=== PATIENT | male | born 1930 | race African-American/Black ===

== ENCOUNTER 2016-12-24 07:36 | Emergency (ER) | payer MEDICARE, OTHER ==
[~2016-12-24] VITALS: Ht 167.6 cm; Wt 104.3 kg
[2016-12-24] MEDS ORDERED: SODIUM CHLORIDE 0.9% 1,000 ML IV ONE (08:44)
[2016-12-24 09:35] LABS: Urine Bilirubin Negative (Negative); Urine Blood 2+ /uL (Negative); Urine Color Yellow (Yellow); Urine Glucose Normal (Normal); Urine Ketone Negative (Negative); Urine Nitrite POSITIVE (Negative); Urine RBC 299 /hpf (0 - 3); Urine Squamous Epithelial Cell FEW /hpf (<5); Urine Urobilinogen Normal (Negative); Urine WBC Clumps PRESENT /hpf (None Seen)
[2016-12-24 10:39] LABS: Basophils # (auto) 0 uL; Basophils % (auto) 0.3 % (0.0-2.0); CONDITION Y; Eosinophils # (auto) 0.1 uL; Eosinophils % (auto) 1.3 % (0.0-7.0); Hematocrit 40.4 % (41.0-53.0); Hemoglobin 13.8 g/dL (13.5-17.5); Lymphocytes # (auto) 0.9 uL; Lymphocytes % (auto) 10.2 % (10.0-50.0); Mean Corpuscular Hemoglobin 29.8 pg (28.0-32.0); Mean Corpuscular Hgb Conc. 34.2 g/dL (32.0-36.0); Mean Corpuscular Volume 86.9 fL (80.0-100.0); Mean Platelet Volume 8.8 fL (7.4-10.4); Monocytes # (auto) 0.5 uL; Neutrophils # (auto) 7.4 uL; Neutrophils % (auto) 82.2 % (37.0-80.0); Platelet Count (auto) 232 10^3/uL (140-450); Red Cell Distribution Width 12.8 % (11.6-16.0)
[2016-12-24 10:52] LABS: INR 1.01 (0.9-1.15); Partial Thromboplastin Time 29.6 sec (22.64-33.71)
[2016-12-24] MEDS ORDERED: NICARDIPINE 25MG/250ML BAG KIT 250 ML IV SCH (10:54)
[2016-12-24 10:59] VITALS: BP 194/97
[2016-12-24] MEDS ORDERED: LABETALOL HCL 5 MG/ML 4ML SYRINGE IV ONE (11:00)
[2016-12-24] MEDS ORDERED: cloNIDine HCL 0.1 MG TAB ONE (11:00)
[2016-12-24 11:02] LABS: Albumin 3.3 g/dL (3.4-5.0); Bilirubin, Total 0.7 mg/dL (0.2-1.0); Calcium 9.1 mg/dL (8.5-10.1); Potassium 3.6 mmol/L (3.5-5.1)
[2016-12-24] MEDS ORDERED: cloNIDine HCL 0.1 MG TAB PO ONE (11:15)
[2016-12-24] MEDS ORDERED: LABETALOL HCL 5 MG/ML ML 20ML VIAL IV ONE (11:15)
[2016-12-24 11:17] LABS: B-Type Natriuretic Peptide 136.56 pg/mL (0-100)
[2016-12-24 11:20] LABS: Temperature: 24.3 C (20.0-25.0)
== END 2016-12-24 11:16 | disposition short-term general hospital (02) ==
LOC: ER 07:36 → EDBD 07:36 → ER 11:16
DX: S06.5X9A Traumatic subdural hemorrhage with loss of consciousness of unspecified duration, initial encounter (principal); I11.0 Hypertensive heart disease with heart failure; I50.9 Heart failure, unspecified; E11.9 Type 2 diabetes mellitus without complications; K21.9 Gastro-esophageal reflux disease without esophagitis; E78.5 Hyperlipidemia, unspecified; I25.2 Old myocardial infarction; R41.82 Altered mental status, unspecified; F03.90 Unspecified dementia, unspecified severity, without behavioral disturbance, psychotic disturbance, mood disturbance, and anxiety; G30.9 Alzheimer's disease, unspecified; F02.80 Dementia in other diseases classified elsewhere, unspecified severity, without behavioral disturbance, psychotic disturbance, mood disturbance, and anxiety; W18.39XA Other fall on same level, initial encounter; Y93.89 Activity, other specified; Y92.89 Other specified places as the place of occurrence of the external cause; Y99.8 Other external cause status
CPT/HCPCS: 36415; 70450; 71010; 73502; 80053; 81001; 83880; 84484; 85025; 85610; 85730; 93005; 96361; 96374; 99285; J3490; J7030

== ENCOUNTER 2017-05-20 12:15 | Inpatient (IN) | payer MEDICARE, OTHER ==
[~2017-05-20] VITALS: Ht 172.7 cm; Wt 75.5 kg
[2017-05-20] MEDS ORDERED: SODIUM CHLORIDE 0.9% 1,000 ML IV ONE (12:18)
[2017-05-20 14:07] LABS: Basophils # (auto) 0 uL; Basophils % (auto) 0.5 % (0.0-2.0); Eosinophils # (auto) 0.4 uL; Eosinophils % (auto) 5.5 % (0.0-7.0); Hematocrit 37.7 % (41.0-53.0); Hemoglobin 12.7 g/dL (13.5-17.5); Lymphocytes % (auto) 14.5 % (10.0-50.0); Mean Corpuscular Hemoglobin 29.4 pg (28.0-32.0); Mean Corpuscular Hgb Conc. 33.7 g/dL (32.0-36.0); Mean Corpuscular Volume 87.3 fL (80.0-100.0); Monocytes # (auto) 0.9 uL; Monocytes % (auto) 12.2 % (0.0-12.0); Neutrophils # (auto) 4.8 uL; Neutrophils % (auto) 67.3 % (37.0-80.0); Nucleated Red Blood Cells % 0.1 %; Platelet Count (auto) 177 10^3/uL (140-450); Red Blood Cells 4.32 10^6/uL (4.5-5.90); Red Cell Distribution Width 13.7 % (11.8-14.3); White Blood Cell 7.1 10^3/uL (4.4-10.8)
[2017-05-20 14:18] LABS: Alanine Aminotransferase 74 U/L (16-61); Albumin 3.2 g/dL (3.4-5.0); Alkaline Phosphatase 93 U/L (45-117); Anion Gap 10 (5-15); Aspartate Aminotransferase 21 U/L (15-37); BUN/Creatinine Ratio 44.2; Bilirubin, Total 0.3 mg/dL (0.2-1.0); Blood Alcohol < 3.0 mg/dL (0-5); Blood Urea Nitrogen 42 mg/dL (7-18); Calcium 8.5 mg/dL (8.5-10.1); Carbon Dioxide 26 mmol/L (21-32); Chloride 107 mmol/L (98-107); GFR African American 97 mL/min; GFR Non-African American 80 mL/min; Glucose 134 mg/dL (74-106); Magnesium 2.7 mg/dL (1.6-2.6); Sodium 143 mmol/L (136-145); Total Protein 6.6 g/dL (6.4-8.2)
[2017-05-20] MEDS ORDERED: DEXTROSE (50%) 50ML SYRG IV PRN (15:30)
[2017-05-20] MEDS ORDERED: AZITHROMYCIN 500MG/ 250ML 250 ML IV ONE (15:30)
[2017-05-20] MEDS ORDERED: cefTRIAXone 1GM/10ml IVPUSH 10 ML IV ONE (15:30)
[2017-05-20 15:41] LABS: Urine Bacteria FEW /hpf (None Seen); Urine Blood 2+ /uL (Negative); Urine Specific Gravity 1.017 (1.001-1.035); Urine WBC 7 /hpf (0 - 3)
[2017-05-20] MEDS ORDERED: LORazepam 2MG/ML-1ML VIAL IV ONE (17:15)
[2017-05-20] MEDS: ASPirin 81 mg TAB PO SCH (17:28)
[2017-05-20] MEDS: InsuLIN REG 1unit/0.01ml Soln (100units/ml) SC SCH (17:53)
[2017-05-20] MEDS: ACCU-CHEK COMFORT CURVE STRIP VI SCH (17:53)
[2017-05-20 20:39] LABS: INR 0.98 (0.9-1.15); Partial Thromboplastin Time 27.9 sec (22.64-33.71); Prothrombin Time 10.7 sec (9.37-12.3)
[2017-05-20] MEDS ORDERED: LORazepam 2MG/ML-1ML VIAL ONE (21:30)
[2017-05-20] MEDS ORDERED: diphenhdrAMINE HCL 50 MG/1 ML VL IV ONE (21:30)
[2017-05-20] MEDS: LORazepam 2MG/ML-1ML VIAL IV PRN (21:44)
[2017-05-20] MEDS: ATORVASTATIN 20 MG TAB PO SCH (22:37)
[2017-05-21] VITALS: BP 145/76
[2017-05-21] MEDS: ACCU-CHEK COMFORT CURVE STRIP VI SCH ×4 (00:18→18:13)
[2017-05-21 05:00] VITALS: BP 155/82
[2017-05-21] MEDS: InsuLIN REG 1unit/0.01ml Soln (100units/ml) SC SCH ×4 (05:34→18:00)
[2017-05-21 07:25] LABS: Basophils # (auto) 0.1 uL; Basophils % (auto) 0.7 % (0.0-2.0); Eosinophils # (auto) 0.5 uL; Hematocrit 36.9 % (41.0-53.0); Hemoglobin 12.3 g/dL (13.5-17.5); Lymphocytes # (auto) 1.3 uL; Lymphocytes % (auto) 17.8 % (10.0-50.0); Mean Corpuscular Hemoglobin 29.8 pg (28.0-32.0); Mean Corpuscular Hgb Conc. 33.4 g/dL (32.0-36.0); Mean Corpuscular Volume 89.4 fL (80.0-100.0); Monocytes # (auto) 0.8 uL; Monocytes % (auto) 10.1 % (0.0-12.0); Neutrophils # (auto) 4.9 uL; Neutrophils % (auto) 65.4 % (37.0-80.0); Platelet Count (auto) 166 10^3/uL (140-450); Red Blood Cells 4.12 10^6/uL (4.5-5.90); White Blood Cell 7.6 10^3/uL (4.4-10.8)
[2017-05-21 07:33] LABS: BUN/Creatinine Ratio 43.4; Calcium 8.5 mg/dL (8.5-10.1); Potassium 4.1 mmol/L (3.5-5.1)
[2017-05-21 09:00] VITALS: BP 141/74
[2017-05-21] MEDS: cefTRIAXone 1GM/10ml IVPUSH 10 ML IV SCH (09:19)
[2017-05-21] MEDS ORDERED: AZITHROMYCIN 500MG/ 250ML 250 ML IV SCH (10:00)
[2017-05-21] MEDS: ASPirin 81 mg TAB PO SCH (12:46)
[2017-05-21 13:00] VITALS: BP 136/64
[2017-05-21] MEDS: LORazepam 2MG/ML-1ML VIAL IV PRN (14:49)
[2017-05-21 16:36] VITALS: BP 117/60
[2017-05-21] MEDS ORDERED: NIFE10CA3 (17:59)
[2017-05-21] MEDS ORDERED: ATOR1TAB (17:59)
[2017-05-21] MEDS ORDERED: RISP1TAB63 (17:59)
[2017-05-21] MEDS ORDERED: LABE100T (17:59)
[2017-05-21] MEDS ORDERED: CLON0.3D4 (17:59)
[2017-05-21] MEDS ORDERED: DONE10TA40 (17:59)
[2017-05-21] MEDS ORDERED: GABA300C10 (17:59)
[2017-05-21] MEDS ORDERED: FURO40TA4 (17:59)
[2017-05-21] MEDS ORDERED: LISI-646 (17:59)
[2017-05-21 22:00] VITALS: BP 123/58
[2017-05-21] MEDS: ATORVASTATIN 20 MG TAB PO SCH (22:12)
[2017-05-22] MEDS: ACCU-CHEK COMFORT CURVE STRIP VI SCH ×4 (00:19→17:17)
[2017-05-22 06:00] VITALS: BP 126/59
[2017-05-22] MEDS: InsuLIN REG 1unit/0.01ml Soln (100units/ml) SC SCH ×4 (06:00→17:17)
[2017-05-22 09:00] VITALS: BP 125/76
[2017-05-22] MEDS: cefTRIAXone 1GM/10ml IVPUSH 10 ML IV SCH (09:00)
[2017-05-22] MEDS: ASPirin 81 mg TAB PO SCH (10:17)
[2017-05-22] MEDS ORDERED: ERTAPENEM SOD INJ 1 GM in SODIUM CHL 0.9% 100 ML IV ONE (11:45)
[2017-05-22] MEDS ORDERED: ERTAPENEM SOD 1 GM INJ VIAL IM SCH (12:00)
[2017-05-22 13:00] VITALS: BP 128/77
[2017-05-22] MEDS: LORazepam 2MG/ML-1ML VIAL IV PRN (13:03)
[2017-05-22] MEDS ORDERED: LIDOCAINE 1% HCL (LOCAL ANESTH.) INJ 20ML MDV ID ONE (14:00)
[2017-05-22 17:00] VITALS: BP 130/76
[2017-05-22] MEDS: SODIUM CHLOR 0.9% PF (SALINE LOCK) 10ML VIAL IV SCH (21:30)
[2017-05-22] MEDS: ATORVASTATIN 20 MG TAB PO SCH (21:30)
[2017-05-23 05:07] VITALS: BP 151/78
[2017-05-23] MEDS: InsuLIN REG 1unit/0.01ml Soln (100units/ml) SC SCH ×4 (05:59→17:51)
[2017-05-23] MEDS: ACCU-CHEK COMFORT CURVE STRIP VI SCH ×4 (05:59→17:50)
[2017-05-23 06:02] LABS: Basophils # (auto) 0.1 uL; Basophils % (auto) 0.6 % (0.0-2.0); Eosinophils # (auto) 0.5 uL; Eosinophils % (auto) 5.3 % (0.0-7.0); Hematocrit 34.7 % (41.0-53.0); Hemoglobin 12.1 g/dL (13.5-17.5); Lymphocytes # (auto) 1.3 uL; Lymphocytes % (auto) 14.9 % (10.0-50.0); Mean Corpuscular Hgb Conc. 34.9 g/dL (32.0-36.0); Mean Corpuscular Volume 86.1 fL (80.0-100.0); Monocytes # (auto) 0.9 uL; Monocytes % (auto) 9.9 % (0.0-12.0); Neutrophils # (auto) 6.2 uL; Neutrophils % (auto) 69.3 % (37.0-80.0); Nucleated Red Blood Cells % 0.1 %; Platelet Count (auto) 183 10^3/uL (140-450); Red Blood Cells 4.03 10^6/uL (4.5-5.90); Red Cell Distribution Width 13.2 % (11.8-14.3); White Blood Cell 8.9 10^3/uL (4.4-10.8)
[2017-05-23 06:15] LABS: BUN/Creatinine Ratio 42.4; Calcium 8.6 mg/dL (8.5-10.1); Potassium 4.4 mmol/L (3.5-5.1)
[2017-05-23 08:52] VITALS: BP 141/79
[2017-05-23] MEDS: ASPirin 81 mg TAB PO SCH (09:31)
[2017-05-23] MEDS: SODIUM CHLOR 0.9% PF (SALINE LOCK) 10ML VIAL IV SCH ×2 (09:31→21:32)
[2017-05-23] MEDS: ERTAPENEM SOD INJ 1 GM in SODIUM CHL 0.9% 100 ML IV SCH (09:32)
[2017-05-23] MEDS ORDERED: DONEPEZIL HYDROCHLORIDE 5 MG TAB PO ONE (11:00)
[2017-05-23] MEDS ORDERED: risperiDONE 1 MG TAB PO ONE (11:00)
[2017-05-23] MEDS ORDERED: GABAPENTIN 300 MG CAP PO ONE (11:00)
[2017-05-23 13:04] VITALS: BP 145/71
[2017-05-23] MEDS: LORazepam 2MG/ML-1ML VIAL IV PRN (15:03)
[2017-05-23 17:10] VITALS: BP 138/74
[2017-05-23] MEDS: ATORVASTATIN 20 MG TAB PO SCH (21:32)
[2017-05-23] MEDS: DONEPEZIL HYDROCHLORIDE 5 MG TAB PO SCH (21:32)
[2017-05-23] MEDS: GABAPENTIN 300 MG CAP PO SCH (21:33)
[2017-05-23 21:36] VITALS: BP 140/68
[2017-05-24 04:56] VITALS: BP 130/71
[2017-05-24] MEDS: ACCU-CHEK COMFORT CURVE STRIP VI SCH ×5 (05:53→23:58)
[2017-05-24] MEDS: InsuLIN REG 1unit/0.01ml Soln (100units/ml) SC SCH ×6 (05:53→23:58)
[2017-05-24 08:00] VITALS: BP 128/71
[2017-05-24] MEDS: ERTAPENEM SOD INJ 1 GM in SODIUM CHL 0.9% 100 ML IV SCH (08:46)
[2017-05-24] MEDS: SODIUM CHLOR 0.9% PF (SALINE LOCK) 10ML VIAL IV SCH ×2 (08:46→22:49)
[2017-05-24] MEDS: risperiDONE 1 MG TAB PO SCH (08:47)
[2017-05-24] MEDS: GABAPENTIN 300 MG CAP PO SCH ×2 (08:47→22:50)
[2017-05-24] MEDS: ASPirin 81 mg TAB PO SCH (08:47)
[2017-05-24 12:00] VITALS: BP 145/80
[2017-05-24 17:00] VITALS: BP 148/88
[2017-05-24 21:39] VITALS: BP 150/71
[2017-05-24] MEDS: DONEPEZIL HYDROCHLORIDE 5 MG TAB PO SCH (22:49)
[2017-05-24] MEDS: ATORVASTATIN 20 MG TAB PO SCH (22:50)
[2017-05-25 04:41] VITALS: BP 136/77
[2017-05-25] MEDS: InsuLIN REG 1unit/0.01ml Soln (100units/ml) SC SCH ×3 (06:00→18:00)
[2017-05-25] MEDS: ACCU-CHEK COMFORT CURVE STRIP VI SCH ×3 (06:06→18:17)
[2017-05-25] MEDS: SODIUM CHLOR 0.9% PF (SALINE LOCK) 10ML VIAL IV SCH ×2 (09:35→22:54)
[2017-05-25] MEDS: ASPirin 81 mg TAB PO SCH (09:35)
[2017-05-25] MEDS: GABAPENTIN 300 MG CAP PO SCH ×2 (09:35→22:54)
[2017-05-25] MEDS: risperiDONE 1 MG TAB PO SCH (09:35)
[2017-05-25] MEDS: ERTAPENEM SOD INJ 1 GM in SODIUM CHL 0.9% 100 ML IV SCH (09:35)
[2017-05-25 13:00] VITALS: BP_SYST 150; BP_DIAS 75; BP_DIAS 80
[2017-05-25 17:33] VITALS: BP 159/75
[2017-05-25 18:29] VITALS: BP 131/83
[2017-05-25 22:00] VITALS: BP 165/88
[2017-05-25] MEDS: DONEPEZIL HYDROCHLORIDE 5 MG TAB PO SCH (22:54)
[2017-05-25] MEDS: ATORVASTATIN 20 MG TAB PO SCH (22:54)
[2017-05-25 23:00] VITALS: BP 169/88
[2017-05-26] MEDS: InsuLIN REG 1unit/0.01ml Soln (100units/ml) SC SCH ×5 (06:00→23:48)
[2017-05-26 06:08] VITALS: BP 136/81
[2017-05-26] MEDS: ACCU-CHEK COMFORT CURVE STRIP VI SCH ×5 (06:18→23:48)
[2017-05-26 09:20] VITALS: BP 107/47
[2017-05-26] MEDS: ERTAPENEM SOD INJ 1 GM in SODIUM CHL 0.9% 100 ML IV SCH (10:57)
[2017-05-26] MEDS: SODIUM CHLOR 0.9% PF (SALINE LOCK) 10ML VIAL IV SCH ×2 (10:58→21:15)
[2017-05-26] MEDS: GABAPENTIN 300 MG CAP PO SCH ×2 (10:59→21:15)
[2017-05-26] MEDS: risperiDONE 1 MG TAB PO SCH (10:59)
[2017-05-26] MEDS: ASPirin 81 mg TAB PO SCH (10:59)
[2017-05-26 12:04] VITALS: BP 120/60
[2017-05-26 17:17] VITALS: BP 156/70
[2017-05-26] MEDS: ATORVASTATIN 20 MG TAB PO SCH (21:15)
[2017-05-26] MEDS: DONEPEZIL HYDROCHLORIDE 5 MG TAB PO SCH (21:15)
[2017-05-26 21:48] VITALS: BP 161/75
[2017-05-27] MEDS: LORazepam 2MG/ML-1ML VIAL IV PRN (00:26)
[2017-05-27 05:06] VITALS: BP 113/64
[2017-05-27] MEDS: InsuLIN REG 1unit/0.01ml Soln (100units/ml) SC SCH (06:00)
[2017-05-27] MEDS: ACCU-CHEK COMFORT CURVE STRIP VI SCH (06:13)
[2017-05-27 09:00] VITALS: BP 128/70
[2017-05-27] MEDS: ASPirin 81 mg TAB PO SCH (10:39)
[2017-05-27] MEDS: GABAPENTIN 300 MG CAP PO SCH ×2 (10:39→22:01)
[2017-05-27] MEDS: risperiDONE 1 MG TAB PO SCH (10:40)
[2017-05-27] MEDS: SODIUM CHLOR 0.9% PF (SALINE LOCK) 10ML VIAL IV SCH ×2 (10:52→22:01)
[2017-05-27] MEDS: ERTAPENEM SOD INJ 1 GM in SODIUM CHL 0.9% 100 ML IV SCH (10:52)
[2017-05-27 14:21] LABS: Basophils # (auto) 0 uL; Basophils % (auto) 0.6 % (0.0-2.0); Eosinophils # (auto) 0.4 uL; Eosinophils % (auto) 9.3 % (0.0-7.0); Hemoglobin 12.1 g/dL (13.5-17.5); Lymphocytes # (auto) 0.9 uL; Lymphocytes % (auto) 21.9 % (10.0-50.0); Mean Corpuscular Hemoglobin 29.7 pg (28.0-32.0); Mean Corpuscular Hgb Conc. 33.8 g/dL (32.0-36.0); Mean Corpuscular Volume 87.9 fL (80.0-100.0); Monocytes # (auto) 0.7 uL; Monocytes % (auto) 17.6 % (0.0-12.0); Neutrophils # (auto) 2.1 uL; Neutrophils % (auto) 50.6 % (37.0-80.0); Nucleated Red Blood Cells % 0.3 %; Platelet Count (auto) 165 10^3/uL (140-450); Red Blood Cells 4.09 10^6/uL (4.5-5.90); White Blood Cell 4.2 10^3/uL (4.4-10.8)
[2017-05-27 14:39] LABS: BUN/Creatinine Ratio 28.4; Calcium 7.9 mg/dL (8.5-10.1); Potassium 4.6 mmol/L (3.5-5.1)
[2017-05-27 21:52] VITALS: BP 126/67
[2017-05-27] MEDS: ATORVASTATIN 20 MG TAB PO SCH (22:01)
[2017-05-27] MEDS: DONEPEZIL HYDROCHLORIDE 5 MG TAB PO SCH (22:01)
[2017-05-28 05:00] VITALS: BP 110/59
[2017-05-28 09:00] VITALS: BP 134/67
[2017-05-28] MEDS: ERTAPENEM SOD INJ 1 GM in SODIUM CHL 0.9% 100 ML IV SCH (10:57)
[2017-05-28] MEDS: SODIUM CHLOR 0.9% PF (SALINE LOCK) 10ML VIAL IV SCH ×2 (10:57→22:44)
[2017-05-28] MEDS: risperiDONE 1 MG TAB PO SCH (10:58)
[2017-05-28] MEDS: GABAPENTIN 300 MG CAP PO SCH ×2 (10:58→22:45)
[2017-05-28] MEDS: ASPirin 81 mg TAB PO SCH (10:58)
[2017-05-28] MEDS: LORazepam 2MG/ML-1ML VIAL IV PRN (14:24)
[2017-05-28 17:00] VITALS: BP 141/73
[2017-05-28 22:00] VITALS: BP 139/69
[2017-05-28] MEDS: DONEPEZIL HYDROCHLORIDE 5 MG TAB PO SCH (22:44)
[2017-05-28] MEDS: ATORVASTATIN 20 MG TAB PO SCH (22:45)
[2017-05-29 05:00] VITALS: BP 139/70
[2017-05-29 07:04] LABS: Hematocrit 34.4 % (41.0-53.0); Mean Corpuscular Hgb Conc. 34.8 g/dL (32.0-36.0); Mean Corpuscular Volume 86.1 fL (80.0-100.0); Platelet Count (auto) 203 10^3/uL (140-450); Red Blood Cells 3.99 10^6/uL (4.5-5.90); Red Cell Distribution Width 13.3 % (11.8-14.3)
[2017-05-29 07:10] LABS: Band Neutrophils % (manual) 0; Basophils % (manual) 0 (0.0-2.0); Blast Cells 0; Metamyelocytes % 0; Myelocytes % 0; Promyelocytes % 0; Reactive Lymphocytes 0
[2017-05-29 07:25] LABS: BUN/Creatinine Ratio 32.1; Calcium 8.6 mg/dL (8.5-10.1); Potassium 4.4 mmol/L (3.5-5.1)
[2017-05-29 08:00] VITALS: BP 128/74
[2017-05-29 08:07] VITALS: BP 136/71
[2017-05-29 08:24] LABS: Eosinophils % (manual) 10 (0-7); Lymphocytes % (manual) 30 (10.0-50.0); Monocytes % (manual) 10 (0-12)
[2017-05-29] MEDS: ERTAPENEM SOD INJ 1 GM in SODIUM CHL 0.9% 100 ML IV SCH (10:17)
[2017-05-29] MEDS: risperiDONE 1 MG TAB PO SCH (10:17)
[2017-05-29] MEDS: SODIUM CHLOR 0.9% PF (SALINE LOCK) 10ML VIAL IV SCH (10:17)
[2017-05-29] MEDS: ASPirin 81 mg TAB PO SCH (10:18)
[2017-05-29] MEDS: GABAPENTIN 300 MG CAP PO SCH (10:18)
[2017-05-29 12:46] VITALS: BP 134/72
== END 2017-05-29 14:10 | disposition hospice, home (50) | DRG 871 ==
LOC: ER 12:15 → EDBD 12:15 → OVERFLOW 12:16 → CENTRAL 23:20
PROVIDERS: ADMIT Internal Medicine; ATTEND Internal Medicine
PROC: 02H633Z Insertion of Infusion Device into Right Atrium, Percutaneous Approach (ICD-10-PCS; principal; 2017-05-22)
DX: A41.9 Sepsis, unspecified organism (principal); G93.40 Encephalopathy, unspecified; E11.65 Type 2 diabetes mellitus with hyperglycemia; I11.0 Hypertensive heart disease with heart failure; I50.9 Heart failure, unspecified; E83.41 Hypermagnesemia; N39.0 Urinary tract infection, site not specified; F02.80 Dementia in other diseases classified elsewhere, unspecified severity, without behavioral disturbance, psychotic disturbance, mood disturbance, and anxiety; I25.10 Atherosclerotic heart disease of native coronary artery without angina pectoris; B96.1 Klebsiella pneumoniae [K. pneumoniae] as the cause of diseases classified elsewhere; E78.5 Hyperlipidemia, unspecified; F32.9 Major depressive disorder, single episode, unspecified; G30.9 Alzheimer's disease, unspecified; K21.9 Gastro-esophageal reflux disease without esophagitis; Z86.73 Personal history of transient ischemic attack (TIA), and cerebral infarction without residual deficits
CPT/HCPCS: 36415; 36569; 51702; 70450; 71045; 80048; 80053; 80320; 81001; 82962; 83605; 83735; 84484; 85007; 85025; 85027; 85610; 85730; 87040; 87081; 87086; 87088; 87186; 93005; 96374; 96375; 96376; 97116; 97530; J1335; J1815

== ENCOUNTER 2017-12-25 03:21 | Inpatient (IN) | payer MEDICARE, MEDICAID ==
[~2017-12-25] VITALS: Ht 182.9 cm; Wt 93.2 kg
[~2017-12-25 03:21] MED LIST: ACE650RS PR; ATOR1TAB; BIS10RS PR; DONE10TA40; GABA300C10; HAL1T PO; HYOS0.1269 SL; LORA1TAB12 PO; RISP1TAB63 PO
[2017-12-25 04:56] LABS: Basophils # (auto) 0 uL; Basophils % (auto) 0.3 % (0.0-2.0); Eosinophils # (auto) 0.3 uL; Eosinophils % (auto) 4.2 % (0.0-7.0); Hematocrit 33.5 % (41.0-53.0); Hemoglobin 11.4 g/dL (13.5-17.5); Lymphocytes # (auto) 1.3 uL; Lymphocytes % (auto) 16.3 % (10.0-50.0); Mean Corpuscular Hemoglobin 29.8 pg (28.0-32.0); Mean Corpuscular Volume 87.8 fL (80.0-100.0); Monocytes # (auto) 0.7 uL; Monocytes % (auto) 8.4 % (0.0-12.0); Neutrophils # (auto) 5.8 uL; Neutrophils % (auto) 70.8 % (37.0-80.0); Platelet Count (auto) 235 10^3/uL (140-450); Red Blood Cells 3.82 10^6/uL (4.5-5.90); Red Cell Distribution Width 13.7 % (11.8-14.3); White Blood Cell 8.1 10^3/uL (4.4-10.8)
[2017-12-25 05:04] LABS: INR 0.99 (0.9-1.15); Partial Thromboplastin Time 25.3 sec (23.78-33.04); Prothrombin Time 10.6 sec (9.27-12.13)
[2017-12-25 05:05] LABS: Alanine Aminotransferase 14 U/L (16-61); Albumin 2.2 g/dL (3.4-5.0); Anion Gap 7 (5-15); Aspartate Aminotransferase 8 U/L (15-37); BUN/Creatinine Ratio 23.5; Blood Urea Nitrogen 16 mg/dL (7-18); Calcium 7.9 mg/dL (8.5-10.1); Carbon Dioxide 26 mmol/L (21-32); Chloride 113 mmol/L (98-107); GFR African American 143 mL/min; GFR Non-African American 118 mL/min; Glucose 111 mg/dL (74-106); Potassium 3.3 mmol/L (3.5-5.1); Sodium 146 mmol/L (136-145)
[2017-12-25 05:10] LABS: Alkaline Phosphatase 92 U/L (45-117); Bilirubin, Total 0.3 mg/dL (0.2-1.0); Total Protein 5.6 g/dL (6.4-8.2)
[2017-12-25] MEDS ORDERED: LABETALOL HCL 5 MG/ML ML 20ML VIAL IV ONE ×2 (06:30→07:45)
[2017-12-25] MEDS ORDERED: POTASSIUM CHL 20MEQ/100ML 100 ML IV ONE (06:45)
[2017-12-25 06:49] LABS: Urine Blood 2+ /uL (Negative); Urine Specific Gravity 1.015 (1.001-1.035)
[2017-12-25 06:50] LABS: Urine Bacteria FEW /hpf (None Seen); Urine WBC 35 /hpf (0 - 3); Urine WBC Clumps PRESENT /hpf (None Seen)
[2017-12-25] MEDS ORDERED: AZITHROMYCIN 500MG/ 250ML 250 ML IV ONE (08:15)
[2017-12-25] MEDS ORDERED: cefTRIAXone 1GM/10ml IVPUSH 10 ML IV ONE (08:15)
[2017-12-25] MEDS ORDERED: DEXTROSE (50%) 50ML SYRG IV PRN (11:15)
[2017-12-25] MEDS ORDERED: HALOPERIDOL 1 MG TAB PO PRN (11:15)
[2017-12-25] MEDS ORDERED: ASPirin-EC 81 mg tab PO ONE ×2 (11:15→11:30)
[2017-12-25] MEDS ORDERED: risperiDONE 1 MG TAB PO ONE ×2 (11:15→11:30)
[2017-12-25] MEDS ORDERED: ONDANSETRON HCL 4 MG/2 ML VIAL IV PRN (11:15)
[2017-12-25] MEDS ORDERED: ACETAMINOPHEN 325 MG TAB PO PRN (11:15)
[2017-12-25] MEDS ORDERED: LORazepam 0.5 MG TAB PO PRN (11:15)
[2017-12-25] MEDS ORDERED: DOCUSATE SOD 100 MG CAP PO PRN (11:15)
[2017-12-25] MEDS ORDERED: NITROGLYCERIN 0.4 MG SL TAB SL PRN (11:15)
[2017-12-25] MEDS ORDERED: TEMAZEPAM 15 MG CAP PO PRN (11:15)
[2017-12-25] MEDS ORDERED: HYOSCYAMINE SULF 0.125 MG TAB PO PRN (11:15)
[2017-12-25] MEDS ORDERED: MORPHINE SULF INJ 2 MG/ML SYRINGE 1ML IV PRN ×2 (11:15)
[2017-12-25] MEDS ORDERED: HYDROcodone-ACET 5/325MG TAB PO PRN (11:15)
[2017-12-25] MEDS ORDERED: ENOXAPARIN SOD 40 MG/0.4 ML SYRINGE SC ONE (11:30)
[2017-12-25] MEDS: InsuLIN REG 1unit/0.01ml Soln (100units/ml) SC SCH ×3 (11:30→22:00)
[2017-12-25] MEDS ORDERED: ZINC SULFATE 220mg CAP or TAB PO ONE (11:30)
[2017-12-25] MEDS ORDERED: FAMOTIDINE 20 MG TAB PO ONE (11:30)
[2017-12-25] MEDS ORDERED: MULTIPLE VITAMIN TAB PO ONE (11:30)
[2017-12-25] MEDS ORDERED: ASCORBIC ACID 500 MG TAB PO ONE (11:30)
[2017-12-25] MEDS: ACCU-CHEK COMFORT CURVE STRIP VI SCH ×3 (11:45→22:10)
[2017-12-25] MEDS: Glucerna Carbsteady SHAKE Vanilla 8oz PO SCH ×4 (12:16→22:30)
[2017-12-25 12:36] LABS: Lactic Acid w/Reflex 2.1 mmol/L (0.4-2.0)
[2017-12-25 13:44] VITALS: BP 129/66
[2017-12-25] MEDS: ALBUTEROL SULF 2.5 MG/0.5ML(0.5%) NEB SOLN NEB SCH ×2 (14:07→20:47)
[2017-12-25] MEDS: SODIUM CHLOR 0.9% PF (SALINE LOCK) 10ML VIAL/SYR IV SCH ×2 (14:19→22:30)
[2017-12-25] MEDS: GABAPENTIN 300 MG CAP PO SCH ×2 (14:24→22:30)
[2017-12-25 17:42] LABS: BUN/Creatinine Ratio 24.6; Calcium 7.9 mg/dL (8.5-10.1); Potassium 3.5 mmol/L (3.5-5.1)
[2017-12-25] MEDS: ATORVASTATIN 20 MG TAB PO SCH (22:30)
[2017-12-25] MEDS: FAMOTIDINE 20 MG TAB PO SCH (22:30)
[2017-12-25] MEDS: risperiDONE 1 MG TAB PO SCH (22:30)
[2017-12-25] MEDS: DONEPEZIL HYDROCHLORIDE 5 MG TAB PO SCH (22:30)
[2017-12-25] MEDS: ASCORBIC ACID 500 MG TAB PO SCH (22:30)
[2017-12-26] MEDS: ALBUTEROL SULF 2.5 MG/0.5ML(0.5%) NEB SOLN NEB SCH ×4 (00:20→19:27)
[2017-12-26] MEDS: Glucerna Carbsteady SHAKE Vanilla 8oz PO SCH ×4 (05:48→21:58)
[2017-12-26] MEDS: SODIUM CHLOR 0.9% PF (SALINE LOCK) 10ML VIAL/SYR IV SCH ×3 (05:48→21:58)
[2017-12-26] MEDS: GABAPENTIN 300 MG CAP PO SCH ×3 (05:49→21:58)
[2017-12-26] MEDS: InsuLIN REG 1unit/0.01ml Soln (100units/ml) SC SCH ×4 (06:58→21:58)
[2017-12-26] MEDS: ACCU-CHEK COMFORT CURVE STRIP VI SCH ×4 (06:58→21:58)
[2017-12-26 07:33] LABS: Basophils # (auto) 0.1 uL; Basophils % (auto) 0.6 % (0.0-2.0); Eosinophils # (auto) 0.4 uL; Eosinophils % (auto) 4.8 % (0.0-7.0); Hematocrit 32.5 % (41.0-53.0); Hemoglobin 11.1 g/dL (13.5-17.5); Lymphocytes # (auto) 1.3 uL; Lymphocytes % (auto) 15.4 % (10.0-50.0); Mean Corpuscular Hemoglobin 30.1 pg (28.0-32.0); Mean Corpuscular Hgb Conc. 34.3 g/dL (32.0-36.0); Mean Corpuscular Volume 87.7 fL (80.0-100.0); Monocytes # (auto) 0.6 uL; Monocytes % (auto) 7.1 % (0.0-12.0); Neutrophils # (auto) 6.3 uL; Neutrophils % (auto) 72.1 % (37.0-80.0); Platelet Count (auto) 202 10^3/uL (140-450); Red Blood Cells 3.71 10^6/uL (4.5-5.90); Red Cell Distribution Width 13.7 % (11.8-14.3); White Blood Cell 8.7 10^3/uL (4.4-10.8)
[2017-12-26 07:47] LABS: Albumin 2.1 g/dL (3.4-5.0); BUN/Creatinine Ratio 27.5; Bilirubin, Total 0.4 mg/dL (0.2-1.0); Potassium 3.5 mmol/L (3.5-5.1); Total Protein 5.4 g/dL (6.4-8.2)
[2017-12-26] MEDS ORDERED: cefTRIAXone 1GM/10ml IVPUSH 10 ML IV SCH (09:00)
[2017-12-26] MEDS: AZITHROMYCIN 500MG/ 250ML 250 ML IV SCH (10:36)
[2017-12-26] MEDS: FAMOTIDINE 20 MG TAB PO SCH ×2 (10:37→21:58)
[2017-12-26] MEDS: risperiDONE 1 MG TAB PO SCH ×2 (10:37→21:58)
[2017-12-26] MEDS: ZINC SULFATE 220mg CAP or TAB PO SCH (10:37)
[2017-12-26] MEDS: ASPirin-EC 81 mg tab PO SCH (10:37)
[2017-12-26] MEDS: ASCORBIC ACID 500 MG TAB PO SCH ×2 (10:37→21:57)
[2017-12-26] MEDS: MULTIPLE VITAMIN TAB PO SCH (10:37)
[2017-12-26] MEDS: ENOXAPARIN SOD 40 MG/0.4 ML SYRINGE SC SCH (10:38)
[2017-12-26] MEDS ORDERED: ERTAPENEM SOD INJ 1 GM in SODIUM CHL 0.9% 50 ML IV ONE (13:00)
[2017-12-26 20:35] VITALS: BP 117/57
[2017-12-26 21:30] VITALS: BP 122/60
[2017-12-26] MEDS: DONEPEZIL HYDROCHLORIDE 5 MG TAB PO SCH (21:58)
[2017-12-26] MEDS: ATORVASTATIN 20 MG TAB PO SCH (21:58)
[2017-12-26 22:40] VITALS: BP 124/54
[2017-12-26 23:45] VITALS: BP 124/75
[2017-12-27] VITALS (9 sets, daily range): BP systolic 111–150; BP diastolic 47–79
[2017-12-27] MEDS: ALBUTEROL SULF 2.5 MG/0.5ML(0.5%) NEB SOLN NEB SCH ×4 (00:56→19:25)
[2017-12-27] MEDS: GABAPENTIN 300 MG CAP PO SCH ×3 (05:43→21:12)
[2017-12-27] MEDS: SODIUM CHLOR 0.9% PF (SALINE LOCK) 10ML VIAL/SYR IV SCH ×3 (05:44→21:14)
[2017-12-27] MEDS: Glucerna Carbsteady SHAKE Vanilla 8oz PO SCH ×4 (05:44→21:14)
[2017-12-27 05:50] LABS: Basophils # (auto) 0 uL; Basophils % (auto) 0.2 % (0.0-2.0); Eosinophils # (auto) 0.4 uL; Eosinophils % (auto) 4.8 % (0.0-7.0); Hematocrit 33.3 % (41.0-53.0); Hemoglobin 11.4 g/dL (13.5-17.5); Lymphocytes # (auto) 0.8 uL; Lymphocytes % (auto) 10.3 % (10.0-50.0); Mean Corpuscular Hemoglobin 29.9 pg (28.0-32.0); Mean Corpuscular Hgb Conc. 34.3 g/dL (32.0-36.0); Monocytes # (auto) 0.5 uL; Monocytes % (auto) 5.9 % (0.0-12.0); Neutrophils # (auto) 6.1 uL; Neutrophils % (auto) 78.8 % (37.0-80.0); Platelet Count (auto) 226 10^3/uL (140-450); Red Blood Cells 3.83 10^6/uL (4.5-5.90); Red Cell Distribution Width 13.9 % (11.8-14.3); White Blood Cell 7.8 10^3/uL (4.4-10.8)
[2017-12-27 06:09] LABS: Albumin 2.2 g/dL (3.4-5.0); BUN/Creatinine Ratio 34.8; Bilirubin, Total 0.3 mg/dL (0.2-1.0); Potassium 3.5 mmol/L (3.5-5.1); Total Protein 5.5 g/dL (6.4-8.2)
[2017-12-27] MEDS: InsuLIN REG 1unit/0.01ml Soln (100units/ml) SC SCH ×4 (06:40→21:31)
[2017-12-27] MEDS: ACCU-CHEK COMFORT CURVE STRIP VI SCH ×4 (06:40→21:13)
[2017-12-27] MEDS: ASPirin-EC 81 mg tab PO SCH (09:08)
[2017-12-27] MEDS: ZINC SULFATE 220mg CAP or TAB PO SCH (09:08)
[2017-12-27] MEDS: MULTIPLE VITAMIN TAB PO SCH (09:08)
[2017-12-27] MEDS: ASCORBIC ACID 500 MG TAB PO SCH ×2 (09:08→21:13)
[2017-12-27] MEDS: FAMOTIDINE 20 MG TAB PO SCH ×2 (09:08→21:12)
[2017-12-27] MEDS: ENOXAPARIN SOD 40 MG/0.4 ML SYRINGE SC SCH (09:09)
[2017-12-27] MEDS: risperiDONE 1 MG TAB PO SCH ×2 (09:09→21:12)
[2017-12-27] MEDS: AZITHROMYCIN 500MG/ 250ML 250 ML IV SCH (09:10)
[2017-12-27] MEDS ORDERED: ERTAPENEM SOD INJ 1 GM in SODIUM CHL 0.9% 50 ML IV SCH (10:00)
[2017-12-27] MEDS: ATORVASTATIN 20 MG TAB PO SCH (21:13)
[2017-12-27] MEDS: DONEPEZIL HYDROCHLORIDE 5 MG TAB PO SCH (21:14)
[2017-12-28] MEDS: ALBUTEROL SULF 2.5 MG/0.5ML(0.5%) NEB SOLN NEB SCH ×4 (00:19→18:05)
[2017-12-28 05:06] VITALS: BP 158/81
[2017-12-28] MEDS: Glucerna Carbsteady SHAKE Vanilla 8oz PO SCH ×4 (06:00→22:21)
[2017-12-28 06:06] LABS: Basophils # (auto) 0 uL; Basophils % (auto) 0.6 % (0.0-2.0); Eosinophils # (auto) 0.3 uL; Eosinophils % (auto) 4.9 % (0.0-7.0); Hematocrit 32.1 % (41.0-53.0); Hemoglobin 11.2 g/dL (13.5-17.5); Mean Corpuscular Hemoglobin 30.5 pg (28.0-32.0); Monocytes # (auto) 0.4 uL; Monocytes % (auto) 6.3 % (0.0-12.0); Neutrophils # (auto) 5.1 uL; Neutrophils % (auto) 74.2 % (37.0-80.0); Platelet Count (auto) 232 10^3/uL (140-450); Red Blood Cells 3.69 10^6/uL (4.5-5.90); Red Cell Distribution Width 13.5 % (11.8-14.3); White Blood Cell 6.8 10^3/uL (4.4-10.8)
[2017-12-28] MEDS: SODIUM CHLOR 0.9% PF (SALINE LOCK) 10ML VIAL/SYR IV SCH ×3 (06:11→22:21)
[2017-12-28] MEDS: GABAPENTIN 300 MG CAP PO SCH ×3 (06:11→22:20)
[2017-12-28] MEDS: InsuLIN REG 1unit/0.01ml Soln (100units/ml) SC SCH ×4 (06:11→22:00)
[2017-12-28] MEDS: ACCU-CHEK COMFORT CURVE STRIP VI SCH ×4 (06:11→22:21)
[2017-12-28 06:20] LABS: Potassium 3.9 mmol/L (3.5-5.1)
[2017-12-28 06:26] LABS: Albumin 2.2 g/dL (3.4-5.0); Calcium 8.5 mg/dL (8.5-10.1)
[2017-12-28 06:29] LABS: Bilirubin, Total 0.4 mg/dL (0.2-1.0); Total Protein 5.6 g/dL (6.4-8.2)
[2017-12-28 08:34] VITALS: BP 158/81
[2017-12-28] MEDS ORDERED: LEVOFLOXACIN 750MG 150 ML IV SCH (08:45)
[2017-12-28 09:00] VITALS: BP 146/74
[2017-12-28] MEDS: ENOXAPARIN SOD 40 MG/0.4 ML SYRINGE SC SCH (09:50)
[2017-12-28] MEDS: ASPirin-EC 81 mg tab PO SCH (09:50)
[2017-12-28] MEDS: risperiDONE 1 MG TAB PO SCH ×2 (09:50→22:20)
[2017-12-28] MEDS: MULTIPLE VITAMIN TAB PO SCH (09:50)
[2017-12-28] MEDS: ZINC SULFATE 220mg CAP or TAB PO SCH (09:50)
[2017-12-28] MEDS: ASCORBIC ACID 500 MG TAB PO SCH ×2 (09:50→22:20)
[2017-12-28] MEDS: FAMOTIDINE 20 MG TAB PO SCH ×2 (10:00→22:00)
[2017-12-28] MEDS: SODIUM CHLORIDE 0.9% 1,000 ML IV SCH ×2 (10:01→18:15)
[2017-12-28 13:00] VITALS: BP 119/56
[2017-12-28] MEDS: cefTRIAXone 1GM/10ml IVPUSH 10 ML IV SCH (15:59)
[2017-12-28 17:00] VITALS: BP 138/76
[2017-12-28 21:39] VITALS: BP 146/73
[2017-12-28] MEDS: ATORVASTATIN 20 MG TAB PO SCH (22:20)
[2017-12-28] MEDS: DONEPEZIL HYDROCHLORIDE 5 MG TAB PO SCH (22:20)
[2017-12-29] VITALS (7 sets, daily range): BP systolic 140–167; BP diastolic 75–96
[2017-12-29] MEDS: ALBUTEROL SULF 2.5 MG/0.5ML(0.5%) NEB SOLN NEB SCH ×4 (00:02→18:54)
[2017-12-29] MEDS: SODIUM CHLORIDE 0.9% 1,000 ML IV SCH ×2 (05:28→14:24)
[2017-12-29] MEDS: SODIUM CHLOR 0.9% PF (SALINE LOCK) 10ML VIAL/SYR IV SCH ×3 (05:28→21:16)
[2017-12-29 06:13] LABS: Basophils # (auto) 0 uL; Basophils % (auto) 0.4 % (0.0-2.0); Eosinophils # (auto) 0.3 uL; Eosinophils % (auto) 4.8 % (0.0-7.0); Hematocrit 34.5 % (41.0-53.0); Hemoglobin 11.8 g/dL (13.5-17.5); Lymphocytes # (auto) 0.9 uL; Lymphocytes % (auto) 15.4 % (10.0-50.0); Monocytes # (auto) 0.4 uL; Monocytes % (auto) 6.8 % (0.0-12.0); Neutrophils # (auto) 4.5 uL; Neutrophils % (auto) 72.6 % (37.0-80.0); Nucleated Red Blood Cells % 0.1 %; Platelet Count (auto) 222 10^3/uL (140-450); Red Blood Cells 3.92 10^6/uL (4.5-5.90); Red Cell Distribution Width 13.6 % (11.8-14.3); White Blood Cell 6.2 10^3/uL (4.4-10.8)
[2017-12-29] MEDS: InsuLIN REG 1unit/0.01ml Soln (100units/ml) SC SCH ×4 (06:23→21:25)
[2017-12-29] MEDS: GABAPENTIN 300 MG CAP PO SCH ×3 (06:23→21:11)
[2017-12-29] MEDS: ACCU-CHEK COMFORT CURVE STRIP VI SCH ×4 (06:24→21:17)
[2017-12-29 06:46] LABS: Potassium 3.9 mmol/L (3.5-5.1); Sodium 140 mmol/L (136-145)
[2017-12-29 06:47] LABS: Alanine Aminotransferase 14 U/L (16-61); Albumin 2.2 g/dL (3.4-5.0); Alkaline Phosphatase 85 U/L (45-117); Anion Gap 3 (5-15); Aspartate Aminotransferase 13 U/L (15-37); BUN/Creatinine Ratio 26.3; Bilirubin, Total 0.3 mg/dL (0.2-1.0); Blood Urea Nitrogen 15 mg/dL (7-18); Calcium 8.2 mg/dL (8.5-10.1); Carbon Dioxide 24 mmol/L (21-32); Chloride 113 mmol/L (98-107); GFR African American 175 mL/min; GFR Non-African American 144 mL/min; Glucose 89 mg/dL (74-106); Total Protein 5.8 g/dL (6.4-8.2)
[2017-12-29] MEDS: Glucerna Carbsteady SHAKE Vanilla 8oz PO SCH ×4 (07:27→21:16)
[2017-12-29] MEDS: cefTRIAXone 1GM/10ml IVPUSH 10 ML IV SCH (08:59)
[2017-12-29] MEDS: LEVOFLOXACIN 750MG 150 ML IV SCH (08:59)
[2017-12-29] MEDS: ASCORBIC ACID 500 MG TAB PO SCH ×2 (09:00→21:16)
[2017-12-29] MEDS: ASPirin-EC 81 mg tab PO SCH (09:00)
[2017-12-29] MEDS: MULTIPLE VITAMIN TAB PO SCH (09:00)
[2017-12-29] MEDS: ENOXAPARIN SOD 40 MG/0.4 ML SYRINGE SC SCH (09:00)
[2017-12-29] MEDS: ZINC SULFATE 220mg CAP or TAB PO SCH (09:00)
[2017-12-29] MEDS: risperiDONE 1 MG TAB PO SCH ×2 (09:00→21:13)
[2017-12-29] MEDS: FAMOTIDINE 20 MG TAB PO SCH ×2 (09:01→21:13)
[2017-12-29] MEDS: LABETALOL HCL 5 MG/ML ML 20ML VIAL IV PRN (15:28)
[2017-12-29] MEDS: DONEPEZIL HYDROCHLORIDE 5 MG TAB PO SCH (21:14)
[2017-12-29] MEDS: ATORVASTATIN 20 MG TAB PO SCH (21:15)
[2017-12-30] MEDS: SODIUM CHLORIDE 0.9% 1,000 ML IV SCH ×3 (00:15→20:37)
[2017-12-30] MEDS: ALBUTEROL SULF 2.5 MG/0.5ML(0.5%) NEB SOLN NEB SCH ×4 (00:32→19:34)
[2017-12-30 04:37] VITALS: BP 166/86
[2017-12-30] MEDS: LABETALOL HCL 5 MG/ML ML 20ML VIAL IV PRN ×4 (05:59→22:13)
[2017-12-30] MEDS: GABAPENTIN 300 MG CAP PO SCH ×3 (06:13→21:06)
[2017-12-30] MEDS: SODIUM CHLOR 0.9% PF (SALINE LOCK) 10ML VIAL/SYR IV SCH ×3 (06:13→21:07)
[2017-12-30] MEDS: InsuLIN REG 1unit/0.01ml Soln (100units/ml) SC SCH ×4 (06:13→21:20)
[2017-12-30] MEDS: ACCU-CHEK COMFORT CURVE STRIP VI SCH ×4 (06:14→21:11)
[2017-12-30] MEDS: Glucerna Carbsteady SHAKE Vanilla 8oz PO SCH ×3 (06:14→21:07)
[2017-12-30 07:59] VITALS: BP 164/74
[2017-12-30] MEDS ORDERED: HYOSCYAMINE SULF 0.125 MG ODT TAB PO PRN (08:30)
[2017-12-30] MEDS: cefTRIAXone 1GM/10ml IVPUSH 10 ML IV SCH (08:59)
[2017-12-30 09:00] VITALS: BP 161/74
[2017-12-30] MEDS: ZINC SULFATE 220mg CAP or TAB PO SCH (09:48)
[2017-12-30] MEDS: ASPirin-EC 81 mg tab PO SCH (09:48)
[2017-12-30] MEDS: FAMOTIDINE 20 MG TAB PO SCH ×2 (09:48→21:06)
[2017-12-30] MEDS: MULTIPLE VITAMIN TAB PO SCH (09:48)
[2017-12-30] MEDS: risperiDONE 1 MG TAB PO SCH ×2 (09:48→21:06)
[2017-12-30] MEDS: ASCORBIC ACID 500 MG TAB PO SCH ×2 (09:48→21:06)
[2017-12-30] MEDS: LEVOFLOXACIN 750MG 150 ML IV SCH (09:49)
[2017-12-30] MEDS: ENOXAPARIN SOD 40 MG/0.4 ML SYRINGE SC SCH (09:49)
[2017-12-30 12:38] VITALS: BP 164/76
[2017-12-30 17:03] VITALS: BP 133/74
[2017-12-30] MEDS: ATORVASTATIN 20 MG TAB PO SCH (21:06)
[2017-12-30] MEDS: DONEPEZIL HYDROCHLORIDE 5 MG TAB PO SCH (21:06)
[2017-12-30 21:55] VITALS: BP 164/88
[2017-12-31] MEDS: ALBUTEROL SULF 2.5 MG/0.5ML(0.5%) NEB SOLN NEB SCH ×3 (00:28→11:31)
[2017-12-31 04:43] VITALS: BP 153/75
[2017-12-31] MEDS: SODIUM CHLOR 0.9% PF (SALINE LOCK) 10ML VIAL/SYR IV SCH ×2 (05:25→14:00)
[2017-12-31] MEDS: LABETALOL HCL 5 MG/ML ML 20ML VIAL IV PRN ×2 (05:29→07:56)
[2017-12-31] MEDS: SODIUM CHLORIDE 0.9% 1,000 ML IV SCH ×2 (06:15→16:15)
[2017-12-31] MEDS: Glucerna Carbsteady SHAKE Vanilla 8oz PO SCH ×2 (06:40→12:12)
[2017-12-31] MEDS: ACCU-CHEK COMFORT CURVE STRIP VI SCH ×3 (06:40→17:00)
[2017-12-31] MEDS: InsuLIN REG 1unit/0.01ml Soln (100units/ml) SC SCH ×3 (06:41→17:00)
[2017-12-31] MEDS: GABAPENTIN 300 MG CAP PO SCH ×2 (07:43→15:02)
[2017-12-31 09:00] VITALS: BP 144/74
[2017-12-31] MEDS ORDERED: DOXYCYCLINE 100 MG TAB/CAP PO SCH (10:00)
[2017-12-31] MEDS ORDERED: MEROPENEM 1gm/20ml IVPUSH 20 ML IV SCH (10:00)
[2017-12-31] MEDS: ASPirin-EC 81 mg tab PO SCH (11:02)
[2017-12-31] MEDS: ASCORBIC ACID 500 MG TAB PO SCH (11:02)
[2017-12-31] MEDS: ENOXAPARIN SOD 40 MG/0.4 ML SYRINGE SC SCH (11:02)
[2017-12-31] MEDS: MULTIPLE VITAMIN TAB PO SCH (11:02)
[2017-12-31] MEDS: ZINC SULFATE 220mg CAP or TAB PO SCH (11:02)
[2017-12-31] MEDS: FAMOTIDINE 20 MG TAB PO SCH (11:02)
[2017-12-31] MEDS: risperiDONE 1 MG TAB PO SCH (11:02)
[2017-12-31 13:00] VITALS: BP 135/67
== END 2017-12-31 17:04 | DRG 871 ==
LOC: EDBD 03:21 → EDSEX 03:21 → ER 03:24 → TELE 03:25 → TELE-CENTR 12-26 08:10
PROVIDERS: ADMIT Internal Medicine; ATTEND Family Medicine
DX: A41.9 Sepsis, unspecified organism (principal); L89.303 Pressure ulcer of unspecified buttock, stage 3; L89.103 Pressure ulcer of unspecified part of back, stage 3; E43 Unspecified severe protein-calorie malnutrition; G93.41 Metabolic encephalopathy; J18.9 Pneumonia, unspecified organism; N39.0 Urinary tract infection, site not specified; E87.0 Hyperosmolality and hypernatremia; I69.359 Hemiplegia and hemiparesis following cerebral infarction affecting unspecified side; E87.6 Hypokalemia; E83.51 Hypocalcemia; E78.5 Hyperlipidemia, unspecified; F32.9 Major depressive disorder, single episode, unspecified; G30.9 Alzheimer's disease, unspecified; D63.8 Anemia in other chronic diseases classified elsewhere; I11.0 Hypertensive heart disease with heart failure; I25.10 Atherosclerotic heart disease of native coronary artery without angina pectoris; K21.9 Gastro-esophageal reflux disease without esophagitis; L89.159 Pressure ulcer of sacral region, unspecified stage; E11.21 Type 2 diabetes mellitus with diabetic nephropathy; F17.200 Nicotine dependence, unspecified, uncomplicated; F02.80 Dementia in other diseases classified elsewhere, unspecified severity, without behavioral disturbance, psychotic disturbance, mood disturbance, and anxiety; E78.00 Pure hypercholesterolemia, unspecified; B95.62 Methicillin resistant Staphylococcus aureus infection as the cause of diseases classified elsewhere; B96.5 Pseudomonas (aeruginosa) (mallei) (pseudomallei) as the cause of diseases classified elsewhere; I50.9 Heart failure, unspecified; Z74.01 Bed confinement status; I25.2 Old myocardial infarction; Z68.27 Body mass index [BMI] 27.0-27.9, adult
CPT/HCPCS: 36415; 51702; 71045; 80048; 80053; 81001; 82533; 82962; 83036; 83605; 83880; 84443; 84484; 85025; 85610; 85730; 87040; 87077; 87086; 87088; 87186; 87205; 93005; 94640; 94761; 96365; 96366; 96368; 96375; 96379; 97163; J0696; J1335; J1815; J1956; J3480

== ENCOUNTER 2018-09-26 18:01 | Inpatient (IN) | payer MEDICARE, MEDICAID | END 2018-10-02 19:30 | disposition home or self-care (01) | LOC: TELE 09-27 00:57 → TELE-CENTR 09-27 02:05 → CENTRAL 09-28 15:03 → ER 18:01 | DX: A41.9 Sepsis, unspecified organism (principal); G93.41 Metabolic encephalopathy; L89.154 Pressure ulcer of sacral region, stage 4; G92 Toxic encephalopathy; N39.0 Urinary tract infection, site not specified; I50.32 Chronic diastolic (congestive) heart failure; E44.0 Moderate protein-calorie malnutrition; E11.9 Type 2 diabetes mellitus without complications; I11.0 Hypertensive heart disease with heart failure; E86.0 Dehydration; I10 Essential (primary) hypertension ==

== ENCOUNTER 2018-10-10 10:49 | Emergency (ER) | payer MEDICARE, MEDICAID ==
[~2018-10-10 10:49] MED LIST changes: +MEMA5TAB2 PO; +PANT40TA2 PO; +TEMA30CA PO
--- NOTE | 2018-10-10 13:05 | NUR ---
Midline Placement: UNABLE TO EDUCATE Patient on need for midline placement DUE TO ALOC. PTS VISIT TODAY IS RELATED TO HIS MIDLINE BEING PULLED OUT AT HOME. REQUEST BY DR Patria LEES TO PLACE A NEW MIDLINE. 18g/10cm midline inserted via LEFT BASILIC vein using Ultrasound. Sterile technique utilized. Blood return obtained from SINGLE lumen and flushed easily with NS using proper technique. Midline secured with saline lock; biodisc and occlusive dressing applied. Primary RN notified. Midline lot # [id number]
[2018-10-10 18:55] VITALS: BP 142/71
== END 2018-10-10 18:58 | disposition home or self-care (01) ==
LOC: ER 10:49 → EDBD 10:49 → ER 18:58
DX: T82.524A Displacement of infusion catheter, initial encounter (principal); E11.9 Type 2 diabetes mellitus without complications; K21.9 Gastro-esophageal reflux disease without esophagitis; E78.5 Hyperlipidemia, unspecified; I10 Essential (primary) hypertension; I25.2 Old myocardial infarction; Z86.73 Personal history of transient ischemic attack (TIA), and cerebral infarction without residual deficits; Y84.8 Other medical procedures as the cause of abnormal reaction of the patient, or of later complication, without mention of misadventure at the time of the procedure; Y92.89 Other specified places as the place of occurrence of the external cause

== ENCOUNTER 2018-10-31 16:59 | Inpatient (IN) | payer MEDICARE, MEDICAID ==
[~2018-10-31] VITALS: Ht 180.3 cm; Wt 69.9 kg
[2018-10-31 19:40] LABS: Eosinophils # (auto) 0.2 uL; Eosinophils % (auto) 1.9 % (0.0-7.0); Hemoglobin 9.5 g/dL (13.5-17.5); Lymphocytes # (auto) 1.2 uL; Lymphocytes % (auto) 10.1 % (10.0-50.0); Neutrophils # (auto) 9.5 uL
[2018-10-31 19:41] LABS: Basophils # (auto) 0.1 uL; Basophils % (auto) 0.5 % (0.0-2.0); Hematocrit 30.1 % (41.0-53.0); Mean Corpuscular Hemoglobin 24.6 pg (28.0-32.0); Mean Corpuscular Hgb Conc. 31.6 g/dL (32.0-36.0); Mean Corpuscular Volume 77.9 fL (80.0-100.0); Monocytes # (auto) 0.8 uL; Monocytes % (auto) 6.5 % (0.0-12.0); Nucleated Red Blood Cells % 0.1 %; Platelet Count (auto) 465 10^3/uL (140-450); Red Blood Cells 3.86 10^6/uL (4.5-5.90); White Blood Cell 11.8 10^3/uL (4.4-10.8)
[2018-10-31 19:51] LABS: Alanine Aminotransferase 9 U/L (16-61); Albumin 1.9 g/dL (3.4-5.0); Anion Gap 4 (5-15); Aspartate Aminotransferase 15 U/L (15-37); BUN/Creatinine Ratio 37.4; Blood Urea Nitrogen 34 mg/dL (7-18); Calcium 8.3 mg/dL (8.5-10.1); Carbon Dioxide 32 mmol/L (21-32); Chloride 107 mmol/L (98-107); GFR African American 102 mL/min; GFR Non-African American 84 mL/min; Glucose 118 mg/dL (74-106); Potassium 4.4 mmol/L (3.5-5.1); Sodium 143 mmol/L (136-145)
[2018-10-31 19:56] LABS: Alkaline Phosphatase 96 U/L (45-117); Bilirubin, Total 0.3 mg/dL (0.2-1.0); Total Protein 6.2 g/dL (6.4-8.2)
[2018-10-31] MEDS ORDERED: DOCUSATE SOD 100 MG CAP PO PRN (22:15)
[2018-10-31] MEDS ORDERED: TEMAZEPAM 15 MG CAP PO PRN (22:15)
[2018-10-31] MEDS ORDERED: ACETAMINOPHEN 325 MG TAB PO PRN (22:15)
[2018-10-31] MEDS ORDERED: ONDANSETRON HCL 4 MG/2 ML VIAL IV PRN (22:15)
[2018-10-31] MEDS ORDERED: DEXTROSE (50%) 50ML SYRG IV PRN (22:15)
[2018-10-31] MEDS ORDERED: LORazepam 2MG/ML-1ML VIAL IV PRN (22:15)
[2018-10-31 22:49] LABS: Urine Bacteria NONE SEEN /hpf (None Seen); Urine Blood 2+ /uL (Negative); Urine Mucus FEW (None Seen); Urine WBC 894 /hpf (0 - 3); Urine WBC Clumps PRESENT /hpf (None Seen)
[2018-10-31] MEDS ORDERED: LEVOFLOXACIN 500MG 100 ML IV ONE (23:00)
[2018-11-01] MEDS: ACCU-CHEK COMFORT CURVE STRIP VI SCH ×4 (00:40→17:43)
[2018-11-01] MEDS: InsuLIN REG 1unit/0.01ml Soln (100units/ml) SC SCH ×4 (00:40→17:44)
[2018-11-01] MEDS: PANTOPRAZOLE 40 MG TAB PO SCH (06:00)
[2018-11-01 07:51] LABS: Basophils # (auto) 0.1 uL; Eosinophils # (auto) 0.3 uL; Hemoglobin 9.2 g/dL (13.5-17.5); Lymphocytes # (auto) 1.4 uL; Monocytes # (auto) 0.6 uL; Monocytes % (auto) 6.3 % (0.0-12.0); Red Cell Distribution Width 18.7 % (11.8-14.3)
[2018-11-01 07:53] LABS: Basophils % (auto) 1.1 % (0.0-2.0); Eosinophils % (auto) 2.7 % (0.0-7.0); Hematocrit 29.3 % (41.0-53.0); Lymphocytes % (auto) 14.5 % (10.0-50.0); Mean Corpuscular Hemoglobin 24.7 pg (28.0-32.0); Mean Corpuscular Hgb Conc. 31.5 g/dL (32.0-36.0); Mean Corpuscular Volume 78.4 fL (80.0-100.0); Neutrophils # (auto) 7.3 uL; Neutrophils % (auto) 75.4 % (37.0-80.0); Platelet Count (auto) 407 10^3/uL (140-450); Red Blood Cells 3.74 10^6/uL (4.5-5.90); White Blood Cell 9.7 10^3/uL (4.4-10.8)
[2018-11-01 08:17] LABS: Anion Gap 7 (5-15); BUN/Creatinine Ratio 33.3; Blood Urea Nitrogen 27 mg/dL (7-18); Calcium 8.1 mg/dL (8.5-10.1); Carbon Dioxide 28 mmol/L (21-32); Chloride 115 mmol/L (98-107); GFR African American 116 mL/min; GFR Non-African American 96 mL/min; Glucose 77 mg/dL (74-106); Potassium 4.5 mmol/L (3.5-5.1); Sodium 150 mmol/L (136-145)
[2018-11-01] MEDS: GABAPENTIN 300 MG CAP PO SCH (10:00)
[2018-11-01] MEDS: risperiDONE 1 MG TAB PO SCH ×2 (10:00→21:48)
[2018-11-01] MEDS: MEMANTINE HCL 5 MG TAB PO SCH (10:00)
[2018-11-01] MEDS: ENOXAPARIN SOD 30 MG/0.3 ML SYRINGE SC SCH (10:16)
--- NOTE | 2018-11-01 11:25 | NUR ---
WOUND CARE NOTE: Wound care in to see patient per wound care request regarding multiple pressure injuries that are noted upon admission. E.R. nurse took photograph of patient's wounds upon admission for reference. Patient is 88 years old male with admitting diagnosis of Metabolic Encephalopathy. Patient is resting in E.R. bed #15. He's awake, aphasic, not oriented. Patient appears to be in no pain using Cardoza Barajas Faces Pain Scale. He's max assist in turning and repositioning and his current Edy score is 11. Skin/wound assessment done with the assistance of patient's nurse, BALDOMERO Hinojosa. 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 Sacral wound measuring ([id number]) with 2cm undermining from 01:00-11:00 with visible tendon. L hip wound measuring 4.5x6x0.7cm with 2.5cm undermining from 08:00-0:100. Wound bed is red with palpable bone. Patient's R hip has Unstageable pressure injury measuring 3x7x0.7cm. Wound bed is 60% red with 405 yellow adherent slough. Multiple pressure injuries has dark red shamar wound with moderate serosanguineous drainage with mild odor noted. On reports, wound culture specimen already sent to lab for processing. Cleanse wounds with wound cleanser, patted dry with gauze, applied Thera honey gel to wound bed area, packed wound cavity with NS moistened gauze and covered wounds with absorbent dressing. Repositioned patient for comfort facing his Lt side, redistributed pressure points with pillows. Patient tolerated well. RECOMMENDATION: Daily/PRN dressing change to multiple pressure injuries per MD orders ,Dietary consult, frequent turning and repositioning schedule as condition permits, redistribute pressure points with pillows, air mattress (ordered), elevate BLE on pillows, continue monitoring by wound care while patient is hospitalized. Addendum: 11/01/18 at 1253 by Glenna Abellar RN Amended: Links added.
[2018-11-01] MEDS: POTASSIUM CHLORIDE 20 MEQ in D5W 5% 1,000 ML IV SCH ×2 (11:52→21:30)
[2018-11-01] MEDS: DONEPEZIL HYDROCHLORIDE 5 MG TAB PO SCH (21:48)
[2018-11-01] MEDS: ATORVASTATIN 20 MG TAB PO SCH (21:48)
[2018-11-01] MEDS ORDERED: LEVOFLOXACIN 250MG 50 ML IV SCH (23:00)
[2018-11-02] VITALS (7 sets, daily range): BP systolic 107–157; BP diastolic 60–95
[2018-11-02] MEDS: ACCU-CHEK COMFORT CURVE STRIP VI SCH ×5 (00:20→23:58)
--- NOTE | 2018-11-02 01:00 | NUR ---
MS admit from ER SUSANNAH HARRIS admitted to [facility]. Patient oriented to ARISTIDES HIGUERA, primary RN, unit, room 206A. Patient weighed by bedscale. Pt is on a specialty air mattress with the rails up x2. Pt is confused and unable to talk. Sitter is in the room for safety. Pt has a triple lumen picc line and a Land catheter in place. Will continue to monitor.
--- NOTE | 2018-11-02 01:20 | NUR ---
Admission and med rec Unable to complete all questions due to ALOC and Aphasia.
--- NOTE | 2018-11-02 03:51 | NUR ---
MRSA Swab sent to lab
[2018-11-02 04:55] LABS: Eosinophils # (auto) 0.1 uL; Hemoglobin 7.4 g/dL (13.5-17.5); Mean Corpuscular Hemoglobin 25.3 pg (28.0-32.0); Mean Corpuscular Hgb Conc. 32.6 g/dL (32.0-36.0); Mean Corpuscular Volume 77.5 fL (80.0-100.0); Neutrophils # (auto) 7.1 uL; Neutrophils % (auto) 78.4 % (37.0-80.0); Red Blood Cells 2.91 10^6/uL (4.5-5.90)
[2018-11-02 04:57] LABS: Basophils # (auto) 0 uL; Basophils % (auto) 0.4 % (0.0-2.0); Eosinophils % (auto) 1.3 % (0.0-7.0); Hematocrit 22.6 % (41.0-53.0); Lymphocytes % (auto) 11.4 % (10.0-50.0); Monocytes # (auto) 0.8 uL; Monocytes % (auto) 8.5 % (0.0-12.0); Platelet Count (auto) 339 10^3/uL (140-450); Red Cell Distribution Width 18.8 % (11.8-14.3)
[2018-11-02 05:12] LABS: BUN/Creatinine Ratio 35.2; Potassium 4.2 mmol/L (3.5-5.1)
[2018-11-02 05:15] LABS: Calcium 8.8 mg/dL (8.5-10.1)
[2018-11-02] MEDS: PANTOPRAZOLE 40 MG TAB PO SCH (06:00)
[2018-11-02] MEDS: InsuLIN REG 1unit/0.01ml Soln (100units/ml) SC SCH ×5 (06:00→23:58)
--- NOTE | 2018-11-02 07:20 | NUR ---
OPENING SHIFT NOTE ASSUMED CARE OF PATIENT FROM ZONE SUPERVISOR FIREARMS RN CORAL. PATIENT IS AWAKE UNABLE TO SAY HIS NAME, SPEECH IS GARBLED AND UNCLEAR. REORIENTED PATIENT TO PERSON, PLACE, TIME AND SITUATION. INSTRUCTED PATIENT ON POC. BED IS IN LOWEST POSITION WITH SIDE RAILS RAISED X2, BED WHEELS LOCKED, ALCANTAR IS HANGING BELOW BLADDER AND IS DRAINING YELLOW CLOUDY URINE, SITTER AT BEDSIDE, AND CALL LIGHT IS WITHIN REACH. WILL CONTINUE TO MONITOR.
[2018-11-02] MEDS: POTASSIUM CHLORIDE 20 MEQ in D5W 5% 1,000 ML IV SCH ×3 (08:22→22:07)
--- NOTE | 2018-11-02 08:30 | NUR ---
TAD AT BEDSIDE. MICARAFY DOES NOT HAVE LIST OF MEDICATIONS. WILL BRING LIST WHEN SHE COMES BACK.
--- NOTE | 2018-11-02 09:17 | NUR ---
CALLED MD LEONARD REGARDING NG ORDER IN NOTES. PER MD WAIT FOR SWALLOW EVALUATION. WILL FOLLOW THROUGH WITH ORDERS
[2018-11-02] MEDS: ENOXAPARIN SOD 30 MG/0.3 ML SYRINGE SC SCH (09:54)
[2018-11-02] MEDS ORDERED: ERTAPENEM SOD INJ 1 GM in SODIUM CHL 0.9% 50 ML IV ONE (10:30)
--- NOTE | 2018-11-02 10:30 | NUR ---
MD RICHARDSON AT BEDSIDE UPDATED MD ON PATIENT'S STATUS INCLUDING WOUND CULTURE, URINE CULTURE, AND HEMOGLOBIN LEVEL. MD WILL PUT IN NEW ORDERS INCLUDING TO CHANGE ALCANTAR IF IT IS THE SAME ONE FROM HOME, MD ORDERED PUREED DIET AND THICKENED LIQUIDS. PER MD MONITOR HGB LEVELS. WILL FOLLOW THROUGH WITH ORDERS.
[2018-11-02] MEDS: MEMANTINE HCL 5 MG TAB PO SCH (11:18)
[2018-11-02] MEDS: risperiDONE 1 MG TAB PO SCH ×2 (11:18→22:01)
[2018-11-02] MEDS: GABAPENTIN 300 MG CAP PO SCH (11:18)
--- NOTE | 2018-11-02 12:00 | NUR ---
CALLED TAD. NO ANSWER, LEFT MESSAGE. AWAITING CALL BACK.
[2018-11-02 13:00] LABS: Alcohol, Urine < 3.0 mg/dL (0-5); Amphetamine Screen, Urine NEGATIVE (NEGATIVE); Barbiturate Scree,Urine NEGATIVE (NEGATIVE); Benzodiazephine Screen, Urine POSITIVE (NEGATIVE); Cannabinoid Screen, Urine NEGATIVE (NEGATIVE); Cocaine Screen, Urine NEGATIVE (NEGATIVE); Opiate Scree,Urine NEGATIVE (NEGATIVE); Phencyclidine Screen, Urine NEGATIVE (NEGATIVE)
--- NOTE | 2018-11-02 14:16 | NUR ---
Nutrition Assessment/consult Notes please see attached link for complete assessment Est. Needs BW 70 [id number] kcal (25-30 kcal/kgBW), 70-91 gms pro (1.0-1.3 gms/kgBW). Will continue to monitor pertinent labs and reassess nutrient need prn Addendum: 11/02/18 at [address] Amended: Links added.
--- NOTE | 2018-11-02 14:17 | NUR ---
SPOKE WITH TAD REGARDING ALCANTAR. PER TAD THE ALCANTAR CATHETER IS FROM HOME.
--- NOTE | 2018-11-02 15:10 | NUR ---
assessment Patient is a 88 year old male who is confused. Per patients Falguni [phone] prior to admission patient lived home with her and family and functioned with the help from [facility]. Patient will need a resumption order on discharge. Patient will need [facility] transport on discharge. Per Falguni patients PCP is Dr Bryant. Patient has a hospital bed, and wheelchair for home use. I informed Falguni patient has a consult for needs placement. Per Falguni patient will return home with her on discharge and [facility] to resume. Falguni refused placement. Falguni verbalized understanding and agreed to discharge plan home. Addendum: 11/02/18 at 1513 by Rosa LOPEZ Amended: Links added.
--- NOTE | 2018-11-02 16:30 | NUR ---
Steward catheter dc'd Order to change steward catheter. Steward dc'd with clean technique following deflation of balloon. Patient tolerated well with no complaints of pain. Continue care.
--- NOTE | 2018-11-02 16:34 | NUR ---
Midline Placement: Patient educated on need for midline placement. All risks and benefits explained and all questions and concerns addresses prior to procedure. 18g/10cm midline inserted via right basilic vein using Ultrasound x 1 attempt, pt tolerated well. Sterile technique utilized. Blood return obtained from single lumen and flushed easily with NS using proper technique. Midline secured with saline lock; biodisc and occlusive dressing applied. Primary RN notified. Midline lot #[id number].
--- NOTE | 2018-11-02 16:45 | NUR ---
Steward catheter insertion Patient assessed and determined to be in need of steward catheter. Order obtained from DYLAN OSBORNE. Patient educated on catheter and reason for insertion. All questions answered. Steward catheter 16 guage Latvian inserted with clean sterile technique. Patient tolerated well. no urine output at this time. Will continue to monitor
--- NOTE | 2018-11-02 17:00 | NUR ---
WOUND CARE DONE ORDERED. PATIENT HAS NO S/S OF DISTRESS/SOB OR PAIN AT THIS TIME.
--- NOTE | 2018-11-02 19:27 | NUR ---
CLOSING SHIFT NOTE ENDORSED CARE TO REINSPECTOR RN JETHRO. PATIENT HAS NO S/S OF DISTRESS/SOB OR PAIN AT THIS TIME.
--- NOTE | 2018-11-02 19:27 | NUR ---
INFORMED TREATING PLANT SUPERVISOR RN PATIENT HAS NOT HAD URINE OUTPUT SINCE NE ALCANTAR HAS BEEN PUT IN .
--- NOTE | 2018-11-02 19:58 | NUR ---
RECEIVED PATIENT FROM DAY SHIFT RN. PATIENT RESTING IN BED. NO S/S OF DISTRESS NOTED. NO PAIN NOTED. PATIENT NOT ABLE TO ANSWER QUESTIONS WHEN ORIENTED PATIENT. ALCANTAR CATH IN PLACE DRAINING GRAVITY, 15ML URINE OUTPUT NOTED. DRESSING ON SACRUM AND BOTH HIP C/D/I. SPECIAL MATTRESS BED IN LOWEST POSITION WITH SIDE RAILS UP X 2. CALL STALLINGS WITHIN REACH. ALARM ON. CONTINUE TO MONITOR FOR CHANGES Q1H AND PRN.
[2018-11-02] MEDS: DONEPEZIL HYDROCHLORIDE 5 MG TAB PO SCH (22:01)
[2018-11-02] MEDS: ATORVASTATIN 20 MG TAB PO SCH (22:01)
--- NOTE | 2018-11-02 22:15 | NUR ---
ORAL MEDICATION GIVEN ORDERED, WITH APPLE SAUCE. PATIENT SWALLOWED WELL. NO S/S OF ASPIRATION NOTED. CONTINUE TO MONITOR.
--- NOTE | 2018-11-03 00:02 | NUR ---
ACCU-CHECK, BS 99. NO COVERAGE. CONTINUE TO MONITOR.
--- NOTE | 2018-11-03 01:10 | NUR ---
REPOSITIONED PATIENT. PATIENT TOLERATED WELL. CONTINUE CARE.
--- NOTE | 2018-11-03 03:36 | NUR ---
REPOSITIONED PATIENT. PATIENT TOLERATED WELL. CONTINUE CARE.
[2018-11-03 04:14] VITALS: BP 152/75
--- NOTE | 2018-11-03 04:36 | NUR ---
BLOOD GUIDO FROM MIDLINE, PATIENT TOLERATED WELL. NO S/S OF DISTRESS NOTED. CONTINUE CARE.
[2018-11-03 04:56] LABS: Basophils # (auto) 0 uL; Eosinophils # (auto) 0.1 uL; Lymphocytes # (auto) 0.6 uL; Mean Corpuscular Volume 77.3 fL (80.0-100.0); Monocytes # (auto) 0.4 uL; White Blood Cell 7.2 10^3/uL (4.4-10.8)
[2018-11-03 04:58] LABS: Basophils % (auto) 0.5 % (0.0-2.0); Eosinophils % (auto) 1.5 % (0.0-7.0); Hematocrit 23.7 % (41.0-53.0); Hemoglobin 7.6 g/dL (13.5-17.5); Lymphocytes % (auto) 8.3 % (10.0-50.0); Mean Corpuscular Hemoglobin 24.9 pg (28.0-32.0); Mean Corpuscular Hgb Conc. 32.2 g/dL (32.0-36.0); Monocytes % (auto) 5.6 % (0.0-12.0); Neutrophils % (auto) 84.1 % (37.0-80.0); Platelet Count (auto) 310 10^3/uL (140-450); Red Blood Cells 3.07 10^6/uL (4.5-5.90); Red Cell Distribution Width 18.6 % (11.8-14.3)
[2018-11-03 05:14] LABS: Calcium 8.1 mg/dL (8.5-10.1); Potassium 4.6 mmol/L (3.5-5.1)
[2018-11-03 05:17] LABS: BUN/Creatinine Ratio 27.3
[2018-11-03] MEDS: InsuLIN REG 1unit/0.01ml Soln (100units/ml) SC SCH ×3 (06:00→17:13)
[2018-11-03] MEDS: PANTOPRAZOLE 40 MG TAB PO SCH (06:23)
[2018-11-03] MEDS: ACCU-CHEK COMFORT CURVE STRIP VI SCH ×3 (06:24→17:13)
--- NOTE | 2018-11-03 06:24 | NUR ---
ORAL MEDICATION GIVEN ORDERED, WITH APPLE SAUCE. PATIENT SWALLOWED WELL. NO S/S OF ASPIRATION NOTED. CONTINUE TO MONITOR.
--- NOTE | 2018-11-03 07:53 | NUR ---
Opening Shift Note Assumed care of patient, awake and alert. No S/S of distress/SOB or pain. Instructed on POC and to call for assist PRN, will continue to monitor for changes Q1hr and PRN.
[2018-11-03 09:00] VITALS: BP_SYST 128; BP_SYST 155; BP_DIAS 86; BP_DIAS 98
[2018-11-03] MEDS: MEMANTINE HCL 5 MG TAB PO SCH (09:55)
[2018-11-03] MEDS: risperiDONE 1 MG TAB PO SCH ×2 (09:55→22:28)
[2018-11-03] MEDS: ERTAPENEM SOD INJ 1 GM in SODIUM CHL 0.9% 50 ML IV SCH (09:55)
[2018-11-03] MEDS: GABAPENTIN 300 MG CAP PO SCH (09:55)
[2018-11-03] MEDS: ENOXAPARIN SOD 30 MG/0.3 ML SYRINGE SC SCH (09:56)
--- NOTE | 2018-11-03 10:04 | NUR ---
MORNING MEDS GIVEN CRUSHED WITH APPLESAUCE, FREQUENT QUEING NOTED FOR PT TO SWALLOW MEDS
--- NOTE | 2018-11-03 12:31 | NUR ---
CALLED UPDATED ON POC
[2018-11-03] MEDS: POTASSIUM CHLORIDE 20 MEQ in D5W 5% 1,000 ML IV SCH (13:26)
[2018-11-03 17:00] VITALS: BP 114/62
--- NOTE | 2018-11-03 17:56 | NUR ---
LEFT HIP, RIGHT HIP, SACRAL DRESSING CHANGED, CLEAN WITH WOUND CLEANSER, APPLY THERAHONEY OINTMENT, PCK WITH WET NS GAUZE, APPLY FOAM DRESSING
--- NOTE | 2018-11-03 19:30 | NUR ---
RECEIVED PATIENT FROM DAY SHIFT RN. PATIENT RESTING IN BED. NO S/S OF DISTRESS NOTED. NO PAIN NOTED. PATIENT NOT ABLE TO ANSWER QUESTIONS WHEN ORIENTED PATIENT. ALCANTAR CATH IN PLACE DRAINING GRAVITY WITH CLEAR YELLOW URINE. DRESSING ON SACRUM AND BOTH HIP C/D/I. SPECIAL MATTRESS BED IN LOWEST POSITION WITH SIDE RAILS UP X 2. CALL STALLINGS WITHIN REACH. ALARM ON. CONTINUE TO MONITOR FOR CHANGES Q1H AND PRN.
[2018-11-03 21:39] VITALS: BP 141/84
[2018-11-03] MEDS: DONEPEZIL HYDROCHLORIDE 5 MG TAB PO SCH (22:28)
[2018-11-03] MEDS: ATORVASTATIN 20 MG TAB PO SCH (22:28)
--- NOTE | 2018-11-03 22:28 | NUR ---
ORAL MEDICATION GIVEN ORDERED, WITH APPLE SAUCE. PATIENT SWALLOWED WELL. NO S/S OF ASPIRATION NOTED. CONTINUE TO MONITOR.
[2018-11-04] MEDS: ACCU-CHEK COMFORT CURVE STRIP VI SCH ×4 (00:13→19:01)
[2018-11-04] MEDS: InsuLIN REG 1unit/0.01ml Soln (100units/ml) SC SCH ×4 (00:14→18:00)
--- NOTE | 2018-11-04 00:14 | NUR ---
ACCU-CHECK, BS 177. INSULIN GIVEN ORDERED. CONTINUE TO MONITOR.
--- NOTE | 2018-11-04 02:17 | NUR ---
REPOSITIONED PATIENT. PATIENT TOLERATED WELL. CONTINUE CARE.
[2018-11-04] MEDS: POTASSIUM CHLORIDE 20 MEQ in D5W 5% 1,000 ML IV SCH ×2 (02:54→15:44)
[2018-11-04 05:22] VITALS: BP 101/69
[2018-11-04] MEDS: PANTOPRAZOLE 40 MG TAB PO SCH (05:55)
--- NOTE | 2018-11-04 05:56 | NUR ---
ORAL MEDICATION GIVEN ORDERED, WITH APPLE SAUCE. PATIENT SWALLOWED WELL. NO S/S OF ASPIRATION NOTED. CONTINUE TO MONITOR.
--- NOTE | 2018-11-04 05:56 | NUR ---
ACCU-CHECK, BS 92. NO COVERAGE. CONTINUE TO MONITOR.
--- NOTE | 2018-11-04 07:40 | NUR ---
OPENING SHIFT NOTE ASSUMED CARE OF PATIENT. PATIENT RESTING COMFORTABLY IN BED AT THIS TIME WITH EYES CLOSED. PATIENT SHOWS NO S/S OF DISTRESS OR SOB NOTED. BED IN LOWEST LOCKED POSITION, SIDE RAILS UP X2, CALL LIGHT WITHIN REACH. WILL CONTINUE TO MONITOR.
[2018-11-04 09:00] VITALS: BP 136/88
[2018-11-04] MEDS ORDERED: ENOXAPARIN SOD 40 MG/0.4 ML SYRINGE SC SCH (10:00)
[2018-11-04] MEDS: ERTAPENEM SOD INJ 1 GM in SODIUM CHL 0.9% 50 ML IV SCH (10:47)
[2018-11-04] MEDS: risperiDONE 1 MG TAB PO SCH (10:47)
[2018-11-04] MEDS: MEMANTINE HCL 5 MG TAB PO SCH (10:47)
[2018-11-04] MEDS: GABAPENTIN 300 MG CAP PO SCH (10:47)
[2018-11-04 13:00] VITALS: BP 129/84
--- NOTE | 2018-11-04 16:44 | NUR ---
CALLED [facility] CALLED AND SPOKE WITH NASH VELA REGARDING HOME HEALTH, EVERYTHING SET UP FOR HOME HEALTH CARE, PER NASH VELA [facility] SHOULD BE FOR INFUSION, BUT PER [facility]ODRIGUE[facility] INFUSION. WILL CLARIFY AND CONTINUE TO MONITOR.
--- NOTE | 2018-11-04 16:50 | NUR ---
[facility]. PER SUE WITH [facility]TIBIOT[facility] WILL BE DELIVERED [facility] [phone]. EVERYTHING IS READY FOR DISCHARGE. WILL CARRY OUT DISCHARGE.
[2018-11-04 16:56] VITALS: BP 139/53
--- NOTE | 2018-11-04 17:01 | NUR ---
TRANSPORTATION PATIENT TO BE PICKED UP AT 1830. CONTINUING TO MONITOR.
--- NOTE | 2018-11-04 17:15 | NUR ---
CENTRAL LINE REMOVED RIGHT IJ REMOVED USING STERILE TECHNIQUE AFTER SUTURES REMOVED, CATHETER INTACT UPON REMOVAL PRESSURE APPLIED THEN PRESSURE DRESSING APPLIED. PATIENT TOLERATED WELL.
--- NOTE | 2018-11-04 18:00 | NUR ---
WOUND PICTURES WOUND PICTURES TAKEN AFTER OLD DRESSINGS REMOVED, WOUNDS ALL CLEANSED ORDERED AND DRESSINGS APPLIED. PATIENT TOLERATED WELL.
--- NOTE | 2018-11-04 19:01 | NUR ---
END OF SHIFT NOTE PATIENT RESTING COMFORTABLY IN BED, NO S/S OF DISTRESS OR SOB NOTED. BED IN LOWEST LOCKED POSITION, CALL LIGHT WITHIN REACH. STILL AWAITING TRANSPORTATION. WILL ENDORSE CARE TO NOC RN.
--- NOTE | 2018-11-04 19:39 | NUR ---
Discharge instructions given as ordered. Encourage to follow up with PMD as instructed. All questions and concerns addressed. Patient verbalized understanding. Medication reconciliation form completed and copy given to patient. Home medications held in IV removed with catheter intact, pressure dressing applied. Patient going home with steward catheter and Midline. Patient transported via gurney with transportation services with all personal belongings, accompanied by staff. No distress noted at time of departure.
== END 2018-11-04 19:39 | disposition home or self-care (01) | DRG 871 ==
LOC: EDBD 16:59 → ER 16:59 → OVERFLOW 17:00 → CENTRAL 11-01 23:55
PROVIDERS: ADMIT Nurse Practitioner; ATTEND Internal Medicine
DX: A41.51 Sepsis due to Escherichia coli [E. coli] (principal); G93.41 Metabolic encephalopathy; L89.224 Pressure ulcer of left hip, stage 4; L89.154 Pressure ulcer of sacral region, stage 4; E43 Unspecified severe protein-calorie malnutrition; N39.0 Urinary tract infection, site not specified; I50.32 Chronic diastolic (congestive) heart failure; E87.0 Hyperosmolality and hypernatremia; L89.210 Pressure ulcer of right hip, unstageable; I50.9 Heart failure, unspecified; I11.0 Hypertensive heart disease with heart failure; E86.0 Dehydration; D72.823 Leukemoid reaction; D64.9 Anemia, unspecified; F02.80 Dementia in other diseases classified elsewhere, unspecified severity, without behavioral disturbance, psychotic disturbance, mood disturbance, and anxiety; F17.200 Nicotine dependence, unspecified, uncomplicated; K21.9 Gastro-esophageal reflux disease without esophagitis; G30.9 Alzheimer's disease, unspecified; F32.9 Major depressive disorder, single episode, unspecified; Z86.73 Personal history of transient ischemic attack (TIA), and cerebral infarction without residual deficits; E11.9 Type 2 diabetes mellitus without complications; Z68.21 Body mass index [BMI] 21.0-21.9, adult
CPT/HCPCS: 36415; 70450; 71045; 80048; 80053; 80307; 81001; 82962; 83605; 83735; 83880; 84484; 85025; 87040; 87077; 87081; 87086; 87088; 87186; 87205; 93005; 94761; 96365; 96367; 96375; G0378; J1335; J1815; J1956

== ENCOUNTER 2018-11-06 18:01 | Emergency (ER) | payer MEDICARE, MEDICAID ==
[~2018-11-06] VITALS: Ht 177.8 cm; Wt 52.2 kg
[2018-11-06] MEDS ORDERED: SODIUM CHLORIDE 0.9% 1,000 ML IV ONE ×2 (18:30→20:15)
[2018-11-06 19:20] LABS: Urine Bacteria NONE SEEN /hpf (None Seen); Urine Blood 1+ /uL (Negative); Urine Mucus MODERATE (None Seen); Urine Specific Gravity 1.021 (1.001-1.035); Urine WBC 453 /hpf (0 - 3)
[2018-11-06 19:21] LABS: Basophils # (auto) 0 uL; Eosinophils # (auto) 0.1 uL; Lymphocytes # (auto) 1.1 uL; Monocytes # (auto) 0.6 uL; Monocytes % (auto) 8.5 % (0.0-12.0); Red Blood Cells 2.97 10^6/uL (4.5-5.90); White Blood Cell 7.2 10^3/uL (4.4-10.8)
[2018-11-06 19:23] LABS: Basophils % (auto) 0.4 % (0.0-2.0); Eosinophils % (auto) 1.7 % (0.0-7.0); Hematocrit 22.9 % (41.0-53.0); Hemoglobin 7.3 g/dL (13.5-17.5); Lymphocytes % (auto) 15.6 % (10.0-50.0); Mean Corpuscular Hemoglobin 24.6 pg (28.0-32.0); Mean Corpuscular Volume 76.9 fL (80.0-100.0); Neutrophils # (auto) 5.3 uL; Neutrophils % (auto) 73.8 % (37.0-80.0); Platelet Count (auto) 349 10^3/uL (140-450); Red Cell Distribution Width 18.9 % (11.8-14.3)
[2018-11-06 19:29] LABS: Alanine Aminotransferase 9 U/L (16-61); Albumin 1.7 g/dL (3.4-5.0); Anion Gap 5 (5-15); Aspartate Aminotransferase 18 U/L (15-37); BUN/Creatinine Ratio 20.8; Blood Urea Nitrogen 21 mg/dL (7-18); Carbon Dioxide 27 mmol/L (21-32); Chloride 113 mmol/L (98-107); GFR African American 90 mL/min; GFR Non-African American 74 mL/min; Glucose 73 mg/dL (74-106); Magnesium 2.5 mg/dL (1.6-2.6); Potassium 3.7 mmol/L (3.5-5.1); Sodium 145 mmol/L (136-145)
[2018-11-06 19:33] LABS: Alkaline Phosphatase 78 U/L (45-117); Bilirubin, Total 0.2 mg/dL (0.2-1.0); Total Protein 5.1 g/dL (6.4-8.2)
[2018-11-06 21:52] LABS: INR 1.08 (0.9-1.15); Partial Thromboplastin Time 28.5 sec (23.64-32.05)
[2018-11-07] VITALS (8 sets, daily range): BP systolic 123–134; BP diastolic 61–73
[2018-11-07 07:26] LABS: Hemoglobin 10.8 g/dL (13.5-17.5)
[2018-11-07 07:28] LABS: Hematocrit 33.4 % (41.0-53.0)
== END 2018-11-07 11:29 | disposition home or self-care (01) ==
LOC: ER 18:01 → EDUNIT# 18:01 → EDBD 18:01 → ER 11-07 11:29
DX: D64.9 Anemia, unspecified (principal); E86.0 Dehydration; N39.0 Urinary tract infection, site not specified; I11.0 Hypertensive heart disease with heart failure; I50.9 Heart failure, unspecified; E78.5 Hyperlipidemia, unspecified; I25.2 Old myocardial infarction; Z86.73 Personal history of transient ischemic attack (TIA), and cerebral infarction without residual deficits
CPT/HCPCS: 36415; 36430; 71045; 80053; 81001; 83735; 83880; 84484; 85014; 85018; 85025; 85610; 85730; 86850; 86900; 86901; 86920; 93005; 94761; 96360; 99285; J7030; P9016